=== PATIENT | female | born 1940 | race Two or more races ===

== ENCOUNTER 2017-06-01 16:49 | Emergency (ER) | payer OTHER ==
[~2017-06-01] VITALS: Ht 165.1 cm; Wt 83.0 kg
[~2017-06-01 16:49] MED LIST: LOSARTAN POTASS50 MG PO
[2017-06-02] MEDS ORDERED: ASA81 MG (05:29)
[2017-06-02] MEDS ORDERED: BUDEO.25 (05:30)
== END 2017-06-01 21:52 | disposition home or self-care (01) ==
LOC: ER 16:49
DX: J44.1 Chronic obstructive pulmonary disease with (acute) exacerbation (principal); J43.8 Other emphysema; R00.0 Tachycardia, unspecified

== ENCOUNTER 2017-06-02 05:22 | Inpatient (IN) | payer OTHER ==
[~2017-06-02] VITALS: Ht 157.5 cm; Wt 83.0 kg
[2017-06-02] MEDS ORDERED: ASA81 MG (05:29)
[2017-06-02] MEDS ORDERED: BUDEO.25 (05:30)
[2017-06-06] MEDS ORDERED: MEDROLPACK PO (16:57)
== END 2017-06-06 18:53 | disposition home or self-care (01) | DRG 192 ==
LOC: ER 05:22 → MEDI 08:38
PROC: 4A033R1 Measurement of Arterial Saturation, Peripheral, Percutaneous Approach (ICD-10-PCS; principal; 2017-06-02)
PROC: 3E0F7GC Introduction of Other Therapeutic Substance into Respiratory Tract, Via Natural or Artificial Opening (ICD-10-PCS; 2017-06-02)
DX: J44.1 Chronic obstructive pulmonary disease with (acute) exacerbation (principal); R09.02 Hypoxemia; I11.0 Hypertensive heart disease with heart failure; I50.9 Heart failure, unspecified; I25.10 Atherosclerotic heart disease of native coronary artery without angina pectoris; Z87.891 Personal history of nicotine dependence

== ENCOUNTER 2022-02-18 12:17 | Emergency (ER) | payer OTHER ==
[~2022-02-18] VITALS: Ht 157.5 cm; Wt 79.4 kg
[~2022-02-18 12:17] MED LIST changes: +ASA81 MG; +BUDEO.25; +MEDROLPACK PO
== END 2022-02-18 20:23 | disposition home or self-care (01) ==
LOC: ER 12:17
DX: J44.1 Chronic obstructive pulmonary disease with (acute) exacerbation (principal)

== ENCOUNTER → 2022-02-26 | Outpatient (CLI) | payer OTHER | END | disposition home or self-care (01) | LOC: RAD 07:52 | PROVIDERS: ATTEND Internal Medicine Pulmonary Disease | DX: J44.1 Chronic obstructive pulmonary disease with (acute) exacerbation (principal); Z87.891 Personal history of nicotine dependence; J15.9 Unspecified bacterial pneumonia ==

== ENCOUNTER 2022-04-17 07:41 | Outpatient (CLI) | payer OTHER | END 2022-04-17 07:48 | disposition home or self-care (01) | LOC: RAD 07:41 | PROVIDERS: ATTEND Internal Medicine Pulmonary Disease | DX: J44.1 Chronic obstructive pulmonary disease with (acute) exacerbation (principal); Z87.891 Personal history of nicotine dependence; J15.9 Unspecified bacterial pneumonia ==

== ENCOUNTER 2024-10-25 10:19 | Outpatient (CLI) | payer OTHER | END 2024-10-25 10:21 | disposition home or self-care (01) | LOC: EDSEX 10:19 → TOM 10:19 | PROVIDERS: ATTEND Internal Medicine Pulmonary Disease | DX: R06.02 Shortness of breath (principal); J43.2 Centrilobular emphysema ==